=== PATIENT | female | born 2000 | race African-American/Black ===

== ENCOUNTER 2024-02-21 10:54 | Emergency (ER) | payer MEDICAID, OTHER ==
[~2024-02-21] VITALS: Ht 152.4 cm; Wt 64.6 kg
--- NOTE | 2024-02-21 11:42 | ED.PDOC ---
PATIENT ASSISTANT HPI Comments Shona Marroquin is a 23-year-old female patient who presents to ED with chief complaint of vaginal bleed which started this morning at 9:00 a.m. after she went to the bathroom, per se was spotting and then it became more profuse. Associated she presented abdominal cramping pain which started at 4:00 a.m. this morning. She said she is currently in 10 week gestation, she does not have an mobile unit assistant doctor and has just gone to hospital visits due to insurance issues. She also reports previous history of her 2nd approximately two years ago, but symptoms were completely different from now (per patient fetus stopped developing). Patient recently went to the ER due to constipation, completed urinalysis which ruled out UTI. Patient has a total of two pelvic ultrasound is completed during this , fetus is development correctly per patient. Denies fever, chills, chest pain, dyspnea, dysuria, hematuria, hematochezia, purulent discharge and motor or sensory deficits. Past medical history: Denies Surgical history: Denies Family history: Mother has hypertension. Mother also has history of arrhythmia (probable SVT) Social history: Lives in [place] with family ( and daughter). Was consuming marijuana before , but quit approximately three months ago. Denies tobacco, alcohol and other drug abuse mobile unit assistant: Her cycles normally lasts 30 days, menstruation five days, she has regular. Gestations 3, para 1 (vaginal), 1. Second gestation presented before the 14 weeks, fetus. Developing per patient. Allergies: Seasonal Home medication: Nausea medication (patient does not recall name), vitamins. Chief Complaint: Vaginal Bleed Time Seen by MD: 11:11 Allergies: Coded Allergies: NO KNOWN ALLERGIES (Unverified , 02/21/24) Physical Exam General Appearance: No Apparent Distress, Normal HEENT: Normal ENT Inspection, Pharynx Normal, TMs Normal Neck: Full Range of Motion, Non-Tender, Normal, Normal Inspection Respiratory: Chest Non-Tender, Lungs Clear, No Accessory Muscle Use, No Re spiratory Distress, Normal Breath Sounds Cardiovascular: No Edema, No JVD, No Murmur, No Gallop, Normal Peripheral Pulses, Regular Rate/Rhythm Breast Exam: Deferred Gastrointestinal: No Organomegaly, Non Tender, No Pulsatile Mass, Normal Bowel Sounds, Soft Genitalia: Other, Deferred ( with 10 week uterus) Pelvic: Deferred Rectal: Deferred Extremities: No calf tenderness, Normal capillary refill, Normal inspection, Normal range of motion, Non-tender, No pedal edema Neurologic: Alert, senior clinical data coordinator II-XII nml as Tested, No Motor Deficits, Normal Affect, Normal Mood, No Sensory Deficits Cerebellar Function: Normal Reflexes: Normal Skin: Dry, Normal Color, Warm Lymphatic: No Adenopathy Was a procedure done? Was a procedure done?: No Differential Diagnosis (SOLAR SYSTEM INSTALLER) Vaginal Bleeding: - Incomplete, Abruptio Placentae, Blood Loss Anemia, Placenta Previa X-Ray, Labs, Meds, VS Vital Signs Date Time Temp Pulse Resp B/P (MAP) Pulse Ox O2 Delivery O2 Flow Rate FiO2 02/21/24 14:20 Room Air* 0 21 02/21/24 14:18 98.2 91 15 119/72 (88) 97 98.2 02/21/24 11:09 98.1 94 16 130/97 (108) 99 Lab Test 02/21/24 11:29 02/21/24 11:05 Range/Units White Blood Count 5.8 4.4-10.8 10^3/uL Red Blood Count 4.56 4.0-5.20 10^6/uL Hemoglobin 14.2 12.2-16.2 g/dL Hematocrit 42.3 36.0-46.0 % Mean Corpuscular Volume 92.6 80.0-100.0 fL Mean Corpuscular Hemoglobin 31.1 28.0-32.0 pg Mean Corpuscular Hemoglobin Concent 33.6 32.0-36.0 g/dL Red Cell Distribution Width 12.2 11.8-14.3 % Platelet Count 485 H 140-450 10^3/uL Mean Platelet Volume 7.6 6.9-10.8 fL Neutrophils (%) (Auto) 51.4 37.0-80.0 % Lymphocytes (%) (Auto) 32.6 10.0-50.0 % Monocytes (%) (Auto) 13.7 H 0.0-12.0 % Eosinophils (%) (Auto) 1.4 0.0-7.0 % Basophils (%) (Auto) 0.9 0.0-2.0 % Neutrophils # (Auto) 3.0 1.6-8.6 10 ^3/uL Lymphocytes # (Auto) 1.9 0.4-5.4 10 ^3/uL Monocytes # (Auto) 0.8 0-1.3 10 ^3/uL Eosinophils # (Auto) 0.1 0-0.8 10 ^3/uL Basophils # (Auto) 0.1 0-0.2 10 ^3/uL Nucleated Red Blood Cells 0.0 % Prothrombin Time 9.8 9.3-11.8 sec Prothrombin Time INR 0.92 0.9-1.15 Activated Partial Thromboplast Time 27.8 24.5-34.5 SEC Sodium Level 136 136-145 mmol/L Potassium Level 4.5 3.5-5.1 mmol/L Chloride Level 104 98-107 mmol/L Carbon Dioxide Level 26 20-31 mmol/L Anion Gap 6 5-15 Blood Urea Nitrogen 7 L 9-23 mg/dL Creatinine 0.70 0.550-1.02 mg/dL Glomerular Filtration Rate Calc 124 >90 mL/min BUN/Creatinine Ratio 10.0 10.0-20.0 Serum Glucose 86 74-106 mg/dL Lactic Acid Level 1.2 0.4-2.0 mmol/L Calcium Level 10.2 8.7-10.4 mg/dL Magnesium Level 1.9 1.6-2.6 mg/dL Total Bilirubin 0.4 0.2-1.0 mg/dL Aspartate Amino Transferase (AST) 20 13-40 U/L Alanine Aminotransferase (ALT) 35 7-40 U/L Alkaline Phosphatase 53 46-116 U/L Total Protein 7.1 5.7-8.2 g/dL Albumin 4.2 3.2-4.8 g/dL Beta HCG, Quantitative > 121850.0 H 1.5-4.2 mIU/mL Urine Color Light-yellow Yellow Urine Clarity Clear Clear Urine pH 7.5 5.0-9.0 Urine Specific [place] 1.015 1.001-1.035 Urine Protein Negative Negative Urine Ketones Negative Negative Urine Blood Negative Negative /uL Urine Nitrite Negative Negative Urine Bilirubin Negative Negative Urine Urobilinogen Normal Negative mg/dL Urine Leukocyte Esterase Negative Negative /uL Urine RBC 1 0 - 4 /hpf Urine WBC 1 0 - 5 /hpf Urine Squamous Epithelial Cells Few <5 /hpf Urine Bacteria None seen None Seen /hpf Urine Mucus Few None Seen Urine Glucose Normal Normal mg/dL Urine Opiates Screen Neg NEGATIVE Urine Fentanyl Screen Neg NEGATIVE Urine Barbiturates Screen Neg NEGATIVE Urine Phencyclidine Screen Neg NEGATIVE Urine Amphetamines Screen Neg NEGATIVE Urine Benzodiazepines Screen Neg NEGATIVE Urine Cocaine Screen Neg NEGATIVE Urine Cannabinoids Screen Pos NEGATIVE X-Ray, Labs, Meds, VS Comment Completed laboratory workup which was within normal limits (hemoglobin 14.2 and hematocrit 42.3). Urinalysis was within normal limit (no asymptomatic bacteriuria). UDS was positive for marijuana, have discussed importance of discontinuing smoking and alcohol consumption during due to risk, patient said she has not been consuming any kind of recreational drugs during . Completed pelvic ultrasound which showed viable fetus of 10 weeks and two days, small subchorionic hematoma and left ovarian cyst measuring 4.3 cm x 3 cm. Discussed on the phone with Dr. Rock who agrees on discharging patient with follow up visit in the [facility] this (patient is having insurance issues at this point, [facility] does not required insurance). Appointment has been scheduled on 02/23/2024 at 9:[address] Dior Casey: Patient seen and evaluated in conjunction with Dr. Lomeli. Agree with assessment, treatment and plan. Time of 1ST Reevaluation: 12:45 Reevaluation 1ST: Improved Patient Education/Counseling: Diagnosis, Treatment, Prognosis, Need For Follow Up Family Education/Counseling: Diagnosis, Treatment, Prognosis, Need For Follow Up Departure 1 Departure Time of Disposition: 13:58 Impression: Primary Impression: Vaginal bleeding in patient at less than 20 weeks gestation Disposition: HOME / SELF CARE / HOMELESS Condition: Good Additional Instructions: Gave her advice on healthy lifestyle habits which include avoiding marijuana, alcohol and avoiding strenuous work (no more than lifting 5 lb), patient should rest. Patient's and patient's daughter need certification that they were in the hospital for evaluation of vaginal bleeding, please provide for to day's date. Follow up appointment and [facility] with Dr. Rock has been arranged for 02/23/2024 at 9:30 a.m.. Patient hemodynamically stable, asymptomatic, with no further vaginal bleeding at this point, and no abdominal pain. In condition to be discharged home. Was granted under optimal medical therapy, gave her advice on healthy lifestyle habits and follow-up visit with mobile unit assistant specialist and [facility]. Discharged With: Relative Critical Care Note Critical Care Time?: No Stability Stability form required: No Heart Score Heart Score: Heart Score Response (Comments) Value History N/A 0 EKG N/A 0 Age N/A 0 Risk Factors N/A 0 Troponin N/A 0 Total 0 MIGUELINA LOMELI Feb 21, 2024 11:42 KALEB MIJARES MD Feb 21, 2024 21:10
[2024-02-21 12:15] LABS: Basophils # (auto) 0.1 10 ^3/uL (0-0.2); Basophils % (auto) 0.9 % (0.0-2.0); Eosinophils # (auto) 0.1 10 ^3/uL (0-0.8); Eosinophils % (auto) 1.4 % (0.0-7.0); Hematocrit 42.3 % (36.0-46.0); Hemoglobin 14.2 g/dL (12.2-16.2); Lymphocytes # (auto) 1.9 10 ^3/uL (0.4-5.4); Lymphocytes % (auto) 32.6 % (10.0-50.0); Mean Corpuscular Hemoglobin 31.1 pg (28.0-32.0); Mean Corpuscular Hgb Conc. 33.6 g/dL (32.0-36.0); Mean Corpuscular Volume 92.6 fL (80.0-100.0); Monocytes # (auto) 0.8 10 ^3/uL (0-1.3); Monocytes % (auto) 13.7 % (0.0-12.0); Neutrophils % (auto) 51.4 % (37.0-80.0); Platelet Count (auto) 485 10^3/uL (140-450); Red Blood Cells 4.56 10^6/uL (4.0-5.20); Red Cell Distribution Width 12.2 % (11.8-14.3); White Blood Cell 5.8 10^3/uL (4.4-10.8)
[2024-02-21 12:21] LABS: INR 0.92 (0.9-1.15); Partial Thromboplastin Time 27.8 SEC (24.5-34.5); Prothrombin Time 9.8 sec (9.3-11.8)
[2024-02-21 12:25] LABS: Urine Bacteria None Seen /hpf (None Seen)
--- NOTE | 2024-02-21 12:26 | DVH ---
OB ULTRASOUND CLINICAL HISTORY: VIABILITY TECHNIQUE: Transvaginal OB ultrasound. Comparison: None FINDINGS: The uterus measures 11.5 x 7.6 x 9.0 cm. There is a gestational sac within the uterus with a mean sac diameter of 4.6 cm. There is a small subchorionic hemorrhage adjacent to the gestational sac. Within the gestational sac a yolk sac and pole are identified. The crown-rump length measures 3.3 cm which corresponds to a gestational age of 10 weeks 2 days. heart activity is demonstrated with heart tone of 172 BPM. The right ovary is not seen on the current study. The left ovary measures 5.2 x 4.0 x 3.4 cm. There is a 4.3 by 3.0 cm left ovarian cyst. There is no free fluid within the cul-de-sac. IMPRESSION: 1. Single viable intrauterine with gestational age of 10 weeks 2 days based on crown-rump jacey gth measurement. 2. 4.3 x 3.0 cm left ovarian cyst. 3. Nonvisualization of the right ovary. HS:Y
[2024-02-21 12:27] LABS: Alanine Aminotransferase 35 U/L (7-40); Albumin 4.2 g/dL (3.2-4.8); Alkaline Phosphatase 53 U/L (46-116); Anion Gap 6 (5-15); Aspartate Aminotransferase 20 U/L (13-40); Calcium 10.2 mg/dL (8.7-10.4); Carbon Dioxide 26 mmol/L (20-31); Chloride 104 mmol/L (98-107); Glucose 86 mg/dL (74-106); Magnesium 1.9 mg/dL (1.6-2.6); Potassium 4.5 mmol/L (3.5-5.1)
[2024-02-21 12:28] LABS: Bilirubin, Total 0.4 mg/dL (0.2-1.0); Blood Urea Nitrogen 7 mg/dL (9-23); Sodium 136 mmol/L (136-145); Total Protein 7.1 g/dL (5.7-8.2)
[2024-02-21 12:41] LABS: Urine Blood Negative /uL (Negative); Urine Clarity Clear (Clear); Urine Color Light-Yellow (Yellow); Urine Mucus FEW (None Seen); Urine Protein, UAD Negative (Negative); Urine Specific Gravity 1.015 (1.001-1.035); Urine Squamous Epithelial Cell FEW /hpf (<5); Urine Urobilinogen Normal (Negative); Urine WBC 1 /hpf (0 - 5); Urine pH 7.5 (5.0-9.0)
[2024-02-21 12:49] LABS: Cannabinoid Screen, Urine Pos (NEGATIVE)
[2024-02-21 12:51] LABS: Amphetamine Screen, Urine Neg (NEGATIVE); Barbiturate Scree,Urine Neg (NEGATIVE); Benzodiazephine Screen, Urine Neg (NEGATIVE); Cocaine Screen, Urine Neg (NEGATIVE); Opiate Scree,Urine Neg (NEGATIVE); Phencyclidine Screen, Urine Neg (NEGATIVE)
[2024-02-21 14:18] VITALS: BP 119/72; PULSE 91; RESP 15; TEMP 98.2; O2SAT 97
== END 2024-02-21 14:24 | disposition home or self-care (01) ==
LOC: ER 10:54
DX: O20.9 Hemorrhage in early pregnancy, unspecified (principal); O26.891 Other specified pregnancy related conditions, first trimester; R10.30 Lower abdominal pain, unspecified; R10.2 Pelvic and perineal pain; Z3A.10 10 weeks gestation of pregnancy; Z79.899 Other long term (current) drug therapy
CPT/HCPCS: 36415; 76801; 80053; 80307; 81001; 83605; 83735; 84702; 85025; 85610; 85730